=== PATIENT | male | born 1955 | race Asian ===

== ENCOUNTER 2023-03-31 06:22 | Day surgery (SDC) | payer OTHER ==
[~2023-03-31] VITALS: Ht 165.1 cm; Wt 79.1 kg
[2023-03-31] MEDS ORDERED: LIDOCAINE 4% 50 ML SOLUTION TP ONE (06:23)
[2023-03-31] MEDS ORDERED: LIDOCAINE 2% 11 ML JELLY TP ONE (06:23)
[2023-03-31] MEDS ORDERED: BENZOCAINE 20% 50 MCG/SPRAY 57 GM TP ONE (06:23)
[2023-03-31] MEDS ORDERED: SODIUM CHLORIDE 0.9% 1,000 ML ONE (06:44)
[2023-03-31] MEDS ORDERED: SITA50 PO (07:19)
[2023-03-31] MEDS ORDERED: GLIP5TAB16 PO (07:19)
[2023-03-31] MEDS ORDERED: CARV12 PO (07:19)
[2023-03-31] MEDS ORDERED: FOLI-130 PO (07:19)
[2023-03-31] MEDS ORDERED: APIX5TAB PO (07:19)
[2023-03-31] MEDS ORDERED: ATOR20TA PO (07:19)
[2023-03-31] MEDS ORDERED: MONT-35 PO (07:20)
[2023-03-31] MEDS ORDERED: OMEP20 PO (07:20)
[2023-03-31] MEDS ORDERED: ISOS30TA92 PO (07:20)
[2023-03-31] MEDS ORDERED: MIDAZOLAM HCL 2 MG/2 ML VIAL ONE (07:42)
[2023-03-31] MEDS ORDERED: FentaNYL CITRATE PF 100 MCG/2 ML VIAL ONE (07:43)
[2023-03-31 07:55] LABS: GLUCOMETER DEV NAME(LOC) SDS.; GLUCOSE,POINT OF CARE 142 MG/DL (70-110)
[2023-03-31] MEDS ORDERED: SODIUM CHLORIDE 0.9% 1,000 ML IV ONE (08:00)
[2023-03-31 08:25] VITALS: PULSE 65; RESP 16; O2SAT 100
[2023-03-31] MEDS ORDERED: MethylPREDNISolone SOD SUCC 125 MG/2 ML VIAL ONE (08:45)
[2023-03-31] MEDS ORDERED: MethylPREDNISolone SOD SUCC 125 MG/2 ML VIAL IVP ONE (09:15)
== END 2023-03-31 10:25 | disposition home or self-care (01) ==
LOC: SURGERY 06:22
PROVIDERS: ATTEND Internal Medicine Critical Care Medicine
DX: J38.4 Edema of larynx (principal); B37.0 Candidal stomatitis; Z95.0 Presence of cardiac pacemaker; I10 Essential (primary) hypertension; I69.351 Hemiplegia and hemiparesis following cerebral infarction affecting right dominant side; Z79.899 Other long term (current) drug therapy
CPT/HCPCS: 31623; 82962; 87206; 87101; 87220; 87070; 88108; 31624; 71045; 87015; J3010; J2250; J2930; Q9967; J7030; Z7610